=== PATIENT | male | born 1990 | race Caucasian/White ===

== ENCOUNTER 2021-11-13 14:29 | Emergency (ER) | payer OTHER, SELFPAY ==
--- NOTE | ~2021-11-13 | CT_ITS ---
EXAMINATION: CT HEAD WITHOUT CONTRAST CLINICAL INFORMATION: Head strike and seizure, rule out intracranial abnormality. COMPARISON: Head CT scan dated 07/21/2007. TECHNIQUE: Contiguous axial imaging was performed from the skull base to vertex without intravenous administration of contrast. Coronal and sagittal reformatted images were obtained. This CT examination was performed using dose optimization techniques as appropriate, variously including the following: *Automated exposure control *Adjustment of mA and/or kV according to patient size (this includes techniques or standardized protocols for targeted exams where dose is matched to indication/reason for exam; i.e. extremities or head) *Use of iterative reconstruction technique DLP: 795.94 mGy-cm FINDINGS: Encephalomalacia is again seen in the left frontal lobe with overall similar appearance. Minimal asymmetric ex vacuo dilatation of the left lateral ventricle frontal horn is noted. Overlying craniotomy defect and changes in the scalp without significant change. There is no acute intra or extracerebral abnormality. There is no mass effect or midline shift. The cortical sulci are normal. The third and fourth ventricles are in their normal midline position. The basilar and prepontine cisterns are unremarkable. The paranasal sinuses are clear. The bony orbits and orbital contents are unremarkable. Mild anterior nasal septal deviation, apex of the right. CT/CT head/brain wo con IMPRESSION: No acute intracranial pathology.
--- NOTE | ~2021-11-13 | CT_ITS ---
EXAMINATION: CT CERVICAL SPINE WITHOUT CONTRAST CLINICAL INFORMATION: Neck pain status post fall. COMPARISON: None TECHNIQUE: Multiple axial images of the cervical spine were obtained without the administration of intravenous contrast. Coronal and sagittal reformatted images were obtained. This CT examination was performed using dose optimization techniques as appropriate, variously including the following: *Automated exposure control *Adjustment of mA and/or kV according to patient size (this includes techniques or standardized protocols for targeted exams where dose is matched to indication/reason for exam; i.e. extremities or head) *Use of iterative reconstruction technique DLP: 727.35 mGy-cm FINDINGS: There is normal cervical lordosis and spinal alignment. The vertebral bodies and intervertebral disc spaces are unremarkable. The odontoid process is intact with mild articular degenerative changes. The neural foramina are patent. The facet joints are unremarkable. The spinous processes are intact. The cervical soft tissues are unremarkable. There is no lymphadenopathy. The thyroid gland is unremarkable. The visualized lung apices show mild paraseptal emphysema. CT/CT cervical spine wo con IMPRESSION: Unremarkable cervical spine.
[2021-11-13 14:42] VITALS: BP 125/67; BP 136/57; PULSE 102; PULSE 90; RESP 17; TEMP 37.1; O2SAT 96; BMI 36.6
--- NOTE | 2021-11-13 14:45 | PC.NURSE ---
pt has handcuff to sofy ankle and r arm to hosp bed. pt also has [address].
--- NOTE | 2021-11-13 14:53 | ECG_ITS ---
Test Reason : Seizure Blood Pressure : / mmHG Vent. Rate : 081 BPM Atrial Rate : 081 BPM P-R Int : 132 ms QRS Dur : 092 ms QT Int : 362 ms P-R-T Axes : 050 040 009 degrees QTc Int : 420 ms Normal sinus rhythm Normal ECG When compared with ECG of 03-NOV-2009 23:06, ST no longer elevated in Anterior leads T wave amplitude has increased in Lateral leads Referred By: Rafia Francis Electronically Signed By:SUSAN PATIÑO
--- NOTE | 2021-11-13 14:54 | PC.NURSE ---
PT IS A/O X 3 NO SOB/DORI NOTED, SPEAKS IN FULL SENTENCES. SKIN PINK WARM DRY. PT WAS NOT C-COLLARED BY EMS. PT LUNGS - CTA, HEART SOUNDS - REGULAR, BOWEL SOUND +X 4 QUADS. NO HEMATOMA NOTED. NO EDEMA NOTED.
--- NOTE | 2021-11-13 14:55 | ED.SEIZURE ---
HPI - Seizure General Chief Complaint: Seizure Stated Complaint: ? seizure Time Seen by Provider: 11/13/21 14:44 Source: patient and police Mode of arrival: EMS Limitations: no limitations History of Present Illness HPI Narrative: 31 yo male in police custody hit left side of his head on beam - was okay no LOC but then was standing 2 feet off the ground (on seating area) in cell and fell down having GTC seizure activity lasting 5 min with postictal state. No prior seizures no blood thinners. No vomiting. Did bite his tongue. He reports no recent illness. Was okay up until hitting his head. complaint: seizure Onset (ago): minute(s) (just prior to arrival ) Description of Episode: loss of consciousness and tonic-clonic movement Duration of episode: 5 -: minutes(s) Witnessed: Yes - by Other (CO) Trauma: Yes Seizure History: No Place: [facility] Possible Precipitating Event: head injury Associated symptoms: denies other symptoms Treatments prior to arrival: none Related Data Allergies Allergy/AdvReac Type Severity Reaction Status Date / Time No Known Allergies Allergy Unverified 12/17/19 16:55 Review of Systems Review of Systems: Constitutional : No Fever, No Chills, No Fatigue ENT/Mouth : No sore throat, No Rhinorrhea, pos bite on tongue Eyes: No Eye Pain, No Swelling, No Redness Cardiovascular : No Chest Pain, No SOB, No Dyspnea on Exertion Respiratory : No Cough, No Sputum Gastrointestinal : No Nausea, No Vomiting, No Diarrhea, No abdominal Pain Genitourinary : No Dysuria, No Urinary Frequency, No Hematuria, Musculoskeletal : No joint pain, No Myalgias, No Joint Swelling Skin : No Skin Lesions, No rash, pos abrasions Neuro : No Weakness, No Numbness, No Dizziness, positive Headache, pos seizure Psych : No Anxiety/Panic, No Depression Heme/Lymph: No Bruising, No Bleeding,No Lymphadenopathy Endocrine : No Polyuria, No Polydipsia All other systems reviewed and are negative [facility] Past Medical History Attestation statement: The following information was validated with the patient. Medical History Anxiety Depression Social History Social History Alcohol intake: never Patient Tobacco Use Status: Never used Tobacco Use of substances other than those prescribed or required for medical reasons: No Advance Directives: No Advance Directives Information Provided: No Physical Exam Vital Signs: Vital Signs: Last Vital Signs Temp 98.8 F 11/13/21 14:42 Pulse 90 11/13/21 14:42 Resp 17 11/13/21 14:42 BP 136/57 L 11/13/21 14:42 Pulse Ox 96 11/13/21 14:42 O2 Del Method 11/13/21 14:42 BMI result Body Mass Index 36.6 Appearance: Alert. Oriented X3. No acute distress. Eyes: Pupils equal, round and reactive to light. ENT: Pharynx normal. Abrasion and small contusion to left eyebrow area, small bilateral abrasions to lateral aspect of tongue , old large healed scar on left side of head - when asked if he had prior head injury or surgery he states no Neck: Normal inspection. Neck supple. CVS: Normal heart rate and rhythm. Pulses normal. Respiratory: No respiratory distress. Breath sounds normal. Abdomen: Soft and non-tender. Skin: Skin warm and dry. Normal skin color. Normal skin turgor. Extremities: No lower extremity edema. No calf ttp Neuro: Oriented X 3. No motor deficit. No sensory deficit. Course Course Course Narrative: lactic acidosis due to seizure and not infection or severe sepsis signed out to Dr. Escalante [facility] - Seizure MDM Narrative Medical decision making narrative: 31 yo male with hx of anxiety/depression here with seizure activity post hitting his head on a metal beam - at this time will need CT head/cspine for trauma, labs, EKG he denies prior seizures, no fam hx of seizures and was fine until he hit his head. He also denies substance abuse / ETOH or concerns for withdrawal. Dispo per results and findings. Lab Data Result diagrams: 11/13/21 15:13 11/13/21 15:13 Labs: Lab Results 11/13/21 11/13/21 11/13/21 Range/Units 15:13 15:13 15:13 WBC 12.9 H (4.8-10.8) X10*3/uL RBC 5.03 (4.60-5.80) X10*6/uL Hgb 13.8 L (14.0-18.0) g/dl Hct 42.2 (42.0-52.0) % MCV 83.9 (80.0-98.0) fL MCH 27.4 (27.0-33.0) pg MCHC 32.7 (31.0-36.0) g/dl RDW 14.2 (11.0-16.0) % Plt Count 331 (160-400) X10*3/uL MPV 9.7 (9.4-12.4) fL Immature Gran % (Auto) 1.0 H (0.0-0.4) % Neut % (Auto) 79.7 H (45-73) % Lymph % (Auto) 12.1 L (20-40) % [place] % (Auto) 5.7 (2-11) % Eos % (Auto) 1.0 (0-4) % Baso % (Auto) 0.5 (0-2) % Lymph # (Auto) 1.6 (1.2-4.9) X10*3/uL [place] # (Auto) 0.7 (0.1-1.2) X10*3/uL Eos # (Auto) 0.1 (0.0-0.4) X10*3/uL Baso # (Auto) 0.1 (0.0-0.2) X10*3/uL Abs Immat Gran (auto) 0.13 H (0.00-0.03) X10*3/uL Absolute Neuts (auto) 10.3 H (2.0-8.3) x10*3/uL Absolute Nucleated RBC 0.000 (0.0-0.012) X10*3/uL Nucleated RBC % (auto) 0.0 (0.0-0.2) /100WBC PT 11.0 (10.0-13.1) SEC INR 1.0 (0.9-1.1) Sodium 140 (135-145) mmol/L Potassium 4.3 (3.3-5.1) mmol/L Chloride 104 (96-108) mmol/L Carbon Dioxide 24 (22-29) mmol/L Anion Gap 16 (12-20) BUN 9 (9-16) mg/dL Creatinine 1.13 (0.5-1.4) mg/dL Estim Creat Clear Calc 101.0 Estimated GFR > 60 Random Glucose 146 H (60-115) mg/dL Lactic Acid (0.5-2.0) mmol/L Calcium 9.6 (8.4-10.2) mg/dL Magnesium 2.4 (1.6-2.6) mg/dL Total Bilirubin 0.2 (0.0-1.0) mg/dL Direct Bilirubin < 0.2 (0.0-0.5) mg/dL AST 19 (5-37) U/L ALT 21 (0-40) U/L Alkaline Phosphatase 101 (39-117) U/L Total Protein 7.6 (6.5-8.0) g/dL Albumin 4.5 (3.5-5.0) g/dL Ethyl Alcohol < 10 mg/dL COVID-19 (LYDIA) (Negative) COVID-19 Clin Com 11/13/21 11/13/21 Range/Units 15:13 15:13 WBC (4.8-10.8) X10*3/uL RBC (4.60-5.80) X10*6/uL Hgb (14.0-18.0) g/dl Hct (42.0-52.0) % MCV (80.0-98.0) fL MCH (27.0-33.0) pg MCHC (31.0-36.0) g/dl RDW (11.0-16.0) % Plt Count (160-400) X10*3/uL MPV (9.4-12.4) fL Immature Gran % (Auto) (0.0-0.4) % Neut % (Auto) (45-73) % Lymph % (Auto) (20-40) % [place] % (Auto) (2-11) % Eos % (Auto) (0-4) % Baso % (Auto) (0-2) % Lymph # (Auto) (1.2-4.9) X10*3/uL [place] # (Auto) (0.1-1.2) X10*3/uL Eos # (Auto) (0.0-0.4) X10*3/uL Baso # (Auto) (0.0-0.2) X10*3/uL Abs Immat Gran (auto) (0.00-0.03) X10*3/uL Absolute Neuts (auto) (2.0-8.3) x10*3/uL Absolute Nucleated RBC (0.0-0.012) X10*3/uL Nucleated RBC % (auto) (0.0-0.2) /100WBC PT (10.0-13.1) SEC INR (0.9-1.1) Sodium (135-145) mmol/L Potassium (3.3-5.1) mmol/L Chloride (96-108) mmol/L Carbon Dioxide (22-29) mmol/L Anion Gap (12-20) BUN (9-16) mg/dL Creatinine (0.5-1.4) mg/dL Estim Creat Clear Calc Estimated GFR Random Glucose (60-115) mg/dL Lactic Acid 3.9 H* (0.5-2.0) mmol/L Calcium (8.4-10.2) mg/dL Magnesium (1.6-2.6) mg/dL Total Bilirubin (0.0-1.0) mg/dL Direct Bilirubin (0.0-0.5) mg/dL AST (5-37) U/L ALT (0-40) U/L Alkaline Phosphatase (39-117) U/L Total Protein (6.5-8.0) g/dL Albumin (3.5-5.0) g/dL Ethyl Alcohol mg/dL COVID-19 (LYDIA) Negative (Negative) COVID-19 Clin Com See Note ECG Data Attestation: I personally reviewed and interpreted this ECG as follows: ECG interpretation date: 11/13/21 ECG interpretation time: 15:12 Interpretation: Rate: 81 Rhythm: NSR [place]: normal Normal P waves. Normal ANGELA. Normal QRS complex. ST T wave : normal no SHAYAN qTC: normal prior studies: no acute ischemia The study has been interpreted contemporaneously by me. . Discharge Plan Discharge Clinical Impression: New onset seizure, Head injury Patient Disposition: Still a Patient
[2021-11-13 15:20] LABS: MANUAL DIFF FLAG NO
[2021-11-13 15:23] LABS: Basophils Absolute Auto 0.1 X10*3/uL (0.0-0.2); Basophils Percent Auto 0.5 % (0-2); Eosinophils Absolute Auto 0.1 X10*3/uL (0.0-0.4); Hematocrit 42.2 % (42.0-52.0); Hemoglobin 13.8 g/dl (14.0-18.0); Imm Gran Abs Auto 0.13 X10*3/uL (0.00-0.03); Lymphocytes Absolute Auto 1.6 X10*3/uL (1.2-4.9); Lymphocytes Percent Auto 12.1 % (20-40); Mean Corpuscular HGB Conc 32.7 g/dl (31.0-36.0); Mean Corpuscular Hemoglobin 27.4 pg (27.0-33.0); Mean Corpuscular Volume 83.9 fL (80.0-98.0); Mean Platelet Volume 9.7 fL (9.4-12.4); Monocytes Absolute Auto 0.7 X10*3/uL (0.1-1.2); Monocytes Percent Auto 5.7 % (2-11); Neutrophils Absolute Auto 10.3 x10*3/uL (2.0-8.3); Neutrophils Percent Auto 79.7 % (45-73); Platelet Count 331 X10*3/uL (160-400); Red Blood Count 5.03 X10*6/uL (4.60-5.80); Red Cell Distribution Width 14.2 % (11.0-16.0); White Blood Count 12.9 X10*3/uL (4.8-10.8)
[2021-11-13 15:45] LABS: Lactic Acid 3.9 mmol/L (0.5-2.0)
[2021-11-13 15:47] LABS: Alanine Aminotransferase 21 U/L (0-40); Albumin Level 4.5 g/dL (3.5-5.0); Alkaline Phosphatase 101 U/L (39-117); Anion Gap 16 (12-20); Aspartate Amino Transferase 19 U/L (5-37); Bilirubin Direct < 0.2 mg/dL (0.0-0.5); Bilirubin Total 0.2 mg/dL (0.0-1.0); Blood Urea Nitrogen 9 mg/dL (9-16); Calcium 9.6 mg/dL (8.4-10.2); Carbon Dioxide 24 mmol/L (22-29); Chloride 104 mmol/L (96-108); Estimated Glomerular Filt Rate > 60; Ethanol < 10 mg/dL; Glucose Random 146 mg/dL (60-115); Magnesium 2.4 mg/dL (1.6-2.6); Potassium 4.3 mmol/L (3.3-5.1); Sodium 140 mmol/L (135-145); Total Protein 7.6 g/dL (6.5-8.0)
[2021-11-13 15:51] LABS: COVID-19 Test Negative (Negative)
[2021-11-13] MEDS: Lactated Ringers 1,000 ML 999 ML IV (16:08)
[2021-11-13 16:19] LABS: Amphetamine Screen Urine Not Detected (Not Detect); Barbiturates, Urine Not Detected (Not Detect); Benzodiazepines Screen Urine Not Detected (Not Detect); Cannabinoid Screen Urine Not Detected (Not Detect); Cocaine Screen Urine Not Detected (Not Detect); Fentanyl, urine Not Detected (Not Detect); Opiate Screen Urine Not Detected (Not Detect); Phencyclidine Screen Urine Not Detected (Not Detect)
[2021-11-13 16:59] VITALS: BP 128/78; PULSE 73; RESP 18; TEMP 37.2; O2SAT 98
[2021-11-13] MEDS: levETIRAcetam in NaCl (iso-os) 1,000 MG/100 ML PIGGYBACK 400 MG IV (16:59)
[2021-11-13 17:17] LABS: Reflex Lactate? Lactic Acid Added
== END 2021-11-13 17:55 ==
PROVIDERS: Emergency Medicine; Emergency Provider Internal Medicine
DX: R56.9 Unspecified convulsions (principal); E87.2 Acidosis; S09.90XA Unspecified injury of head, initial encounter; S00.12XA Contusion of left eyelid and periocular area, initial encounter; S00.212A Abrasion of left eyelid and periocular area, initial encounter; S00.512A Abrasion of oral cavity, initial encounter; W17.89XA Other fall from one level to another, initial encounter; F41.9 Anxiety disorder, unspecified; F32.A Depression, unspecified; Y93.89 Activity, other specified; Y92.143 Cell of prison as the place of occurrence of the external cause; Y99.9 Unspecified external cause status; Z20.822 Contact with and (suspected) exposure to COVID-19
CPT/HCPCS: 36415; 70450; 72125; 80048; 80076; 80307; 82077; 83605; 83735; 85025; 85610; 87635; 93005; 96361; 96374; 99284; 99285; J1953